=== PATIENT | male | born 1990 | race African-American/Black ===

== ENCOUNTER 2019-08-21 23:00 | Emergency (ER) | payer OTHER ==
[~2019-08-21] VITALS: Ht 175.3 cm; Wt 81.2 kg
[2019-08-21 23:07] VITALS: BP 128/77
[2019-08-21] MEDS ORDERED: KETOROLAC TROMETHAMINE INJ 60 MG/2 ML VIAL IM ONE (23:39)
--- NOTE | 2019-08-21 23:41 | NUR ---
RADIOLOGY AT BEDSIDE FOR XRAY
[2019-08-21] MEDS: KETOROLAC TROMETHAMINE INJ 60 MG/2 ML VIAL IM ONE (23:51)
--- NOTE | 2019-08-22 00:32 | NUR ---
Patient discharged to home in stable condition. Written and verbal after care instructions given. Patient verbalizes understanding of instruction. Pt ambulated with steady gait. Pt stated "Fuck this, I'm calling my doctor in the morning."
== END 2019-08-22 00:34 | disposition home or self-care (01) ==
LOC: ER 23:09
DX: M87.80 Other osteonecrosis, unspecified bone (principal); M25.552 Pain in left hip; Z60.2 Problems related to living alone
CPT/HCPCS: 73503; 96372; 99283; J1885; 73502